=== PATIENT | female | born 1990 | race Two or more races ===

== ENCOUNTER 2019-06-23 12:52 | Emergency (ER) | payer MEDICAID ==
[~2019-06-23] VITALS: Ht 170.2 cm; Wt 72.6 kg
[2019-06-23 12:52] VITALS: BP 122/70
--- NOTE | 2019-06-23 12:52 | NUR ---
ED Nurse Note: patient came to ed for c/o abdominal pain. pt denies nausea/vomiting.
--- NOTE | 2019-06-23 13:15 | NUR ---
ED Nurse Note: URINE SAMPLE SENT TO LAB
[2019-06-23 13:50] LABS: APPEARANCE,URINE CLEAR; BILIRUBIN, URINE NEGATIVE (NEGATIVE); COLOR,URINE BROWN; GLUCOSE, URINE (UA) NEGATIVE (NEGATIVE); KETONES,URINE NEGATIVE (NEGATIVE); LEUKOCYTE ESTERASE ,URINE NEGATIVE (NEGATIVE); NITRITE,URINE NEGATIVE (NEGATIVE); PH,URINE 6.5 (4.5-8.0); PROTEIN,URINE NEGATIVE (NEGATIVE); UROBILINOGEN,URINE 1 MG/DL (0.0-1.0)
--- NOTE | 2019-06-23 14:12 | NUR ---
ED Nurse Note: BLOOD SAMPLE SENT TO LAB
[2019-06-23 14:32] LABS: BASOPHILS % (AUTO) 0.5 % (0.0-2.0); HEMATOCRIT 35.3 % (37.0-47.0); HEMOGLOBIN 12.3 G/DL (12.0-16.0); LYMPHOCYTES % (AUTO) 19.8 % (20.0-45.0); MEAN CORPUSCULAR VOLUME 85 FL (80-99); MONOCYTES % (AUTO) 6.4 % (1.0-10.0); NEUTROPHILS % (AUTO) 71.3 % (45.0-75.0); PLATELET COUNT 222 K/UL (150-450); RED BLOOD COUNT 4.15 M/UL (4.20-5.40); RED CELL DISTRIBUTION WIDTH 11.8 % (11.6-14.8); WHITE BLOOD COUNT 11.1 K/UL (4.8-10.8)
[2019-06-23 14:50] VITALS: BP 130/74
--- NOTE | 2019-06-23 14:50 | NUR ---
ED Nurse Note: pt in room resting, no acute distress is noted. VSS as documented.
--- NOTE | 2019-06-23 14:56 | Emergency Room Report ---
History of Present Illness General Chief Complaint: Abdominal Pain Source: Patient Present Illness HPI 28-year-old female presents to the emergency department complaining of 9 out of 10 severity lower abdominal pain with bloating. Patient reports nausea she states she has had some vomiting couple weeks ago. She is able to pass gas. Patient denies fevers or chills. She denies suspicion of . Patient reports her last menstrual cycle was 8 months ago. Patient states she is not currently sexually active. She denies taking control. She reports prior to 8 months ago she would have her menstrual cycles regularly every month. She denies constipation or diarrhea. She denies dysuria, urinary frequency or urgency. She reports weight gain. No other aggravating or relieving factors at this time. Pt. with psych hx of Bi-polar and depression/anxiety. Pt. reports she self D/C'd her medications several months ago. She was supposed to be taking Latuda and Vitamin B6. Allergies: Coded Allergies: No Known Allergies (Unverified , 06/23/19) UNABLE TO ASSESS (Unverified , 06/24/15) COVID-19 Screening Contact w/high risk pt: No Recent Travel to affected area: No Experienced COVID-19 symptoms?: No Patient History Past Medical History: see triage record, psych hx Past Surgical History: none Pertinent Family History: none Social History: Reports: smoking - current daily smoker Now: Yes Reviewed Nursing Documentation: PMH: Agreed; PSxH: Agreed Nursing Documentation-PMH Past Medical History: No History, Except For History Of Psychiatric Problem: Yes Review of Systems All Other Systems: negative except mentioned in HPI Physical Exam Vital Signs Date Time Temp Pulse Resp B/P (MAP) Pulse Ox O2 Delivery O2 Flow Rate FiO2 06/23/19 12:43 97.3 78 18 116/72 (87) 99 Room Air Sp02 EP Interpretation: reviewed, normal General Appearance: no apparent distress, alert, GCS 15, non-toxic Head: normocephalic, atraumatic Eyes: bilateral eye normal inspection, bilateral eye PERRL ENT: hearing grossly normal, normal voice Neck: full range of motion Respiratory: chest non-tender, lungs clear, normal breath sounds, speaking full sentences Cardiovascular #1: regular rate, rhythm, no edema Gastrointestinal: normal bowel sounds, non tender, no guarding, no hernia, other - gravid palpation at the umbillicus. Rectal: deferred Genitourinary: normal inspection, no CVA tenderness Musculoskeletal: normal range of motion, gait/station normal, non-tender Neurologic: alert, motor strength/tone normal, oriented x3, sensory intact, responsive, speech normal Psychiatric: judgement/insight normal, no suicidal/homicidal ideation, other - pt. has paranoid delusions. Skin: no rash, normal color, normal inspection Lymphatic: no adenopathy Medical Decision Making PA Attestation Dr. Marr Is my supervising Physician whom patient management has been discussed with. Diagnostic Impression: Primary Impression: Left against medical advice Additional Impression: Abdominal pain affecting ER Course 28-year-old female presents to the emergency department complaining of 9 out of 10 severity lower abdominal pain with bloating. Patient reports nausea she states she has had some vomiting couple weeks ago. She is able to pass gas. Patient denies fevers or chills. She denies suspicion of . Patient reports her last menstrual cycle was 8 months ago. Patient states she is not currently sexually active. She denies taking control. She reports prior to 8 months ago she would have her menstrual cycles regularly every month. She denies constipation or diarrhea. She denies dysuria, urinary frequency or urgency. She reports weight gain. No other aggravating or relieving factors at this time. Pt. with psych hx of Bi-polar and depression/anxiety. Pt. reports she self D/C'd her medications several months ago. She was supposed to be taking Latuda and Vitamin B6. Ddx considered but are not limited to Diverticulitis, acute appy, diarrhea,UC, PUD, GE, pancreatitis, gallstone, ovarian torsion, ectopic , PID tubo-ovarian abscess. demise, premature delivery just to name a few. Vital signs: are WNL, pt. is afebrile H&PE are most consistent with suspected Gravid abdomen and possible complication ORDERS: -CBC, CMP, LIPASE: unremarkable -UA: unremarkable -URINE HCG: Positive. -Hcg Quant: 7583 US OB: --Declined by pt. she wants to leave AMA DISPOSITION: - At this time the patient is requesting to leave AGAINST MEDICAL ADVICE. I believe that this patient has the capacity to make decisions on her own. I discussed with the patient the risks of leaving AMA. Some of these risks include delay in diagnosis and treatment, as well as worsening of symptoms, organ damage, and permanent disability or even to both her and her unborn child. After discussing these risks with the patient. She continues to express her wished to leave AGAINST MEDICAL ADVICE. I encouraged the patient to return at any time, and that she will be welcome here in the emergency department to continue medical management. ED INTERVENTIONS: -none required at this time. Labs Test 06/23/19 13:13 06/23/19 14:10 Urine Color Brown Urine Appearance Clear Urine pH 6.5 (4.5-8.0) Urine Specific [place] 1.015 (1.005-1.035) Urine Protein Negative (NEGATIVE) Urine Glucose (UA) Negative (NEGATIVE) Urine Ketones Negative (NEGATIVE) Urine Blood Negative (NEGATIVE) Urine Nitrite Negative (NEGATIVE) Urine Bilirubin Negative (NEGATIVE) Urine Urobilinogen 1 MG/DL (0.0-1.0) Urine Leukocyte Esterase Negative (NEGATIVE) Urine HCG, Qualitative Positive (NEGATIVE) White Blood Count 11.1 K/UL (4.8-10.8) Red Blood Count 4.15 M/UL (4.20-5.40) Hemoglobin 12.3 G/DL (12.0-16.0) Hematocrit 35.3 % (37.0-47.0) Mean Corpuscular Volume 85 FL (80-99) Mean Corpuscular Hemoglobin 29.5 PG (27.0-31.0) Mean Corpuscular Hemoglobin Concent 34.7 G/DL (32.0-36.0) Red Cell Distribution Width 11.8 % (11.6-14.8) Platelet Count 222 K/UL (150-450) Mean Platelet Volume 10.6 FL (6.5-10.1) Neutrophils (%) (Auto) 71.3 % (45.0-75.0) Lymphocytes (%) (Auto) 19.8 % (20.0-45.0) Monocytes (%) (Auto) 6.4 % (1.0-10.0) Eosinophils (%) (Auto) 2.0 % (0.0-3.0) Basophils (%) (Auto) 0.5 % (0.0-2.0) Sodium Level 138 MMOL/L (136-145) Potassium Level 3.9 MMOL/L (3.5-5.1) Chloride Level 105 MMOL/L (98-107) Carbon Dioxide Level 23 MMOL/L (21-32) Anion Gap 10 mmol/L (5-15) Blood Urea Nitrogen 8 mg/dL (7-18) Creatinine 0.6 MG/DL (0.55-1.30) Estimat Glomerular Filtration Rate > 60 mL/min (>60) Glucose Level 97 MG/DL (74-106) Calcium Level 9.1 MG/DL (8.5-10.1) Total Bilirubin 0.1 MG/DL (0.2-1.0) Aspartate Amino Transf (AST/SGOT) 13 U/L (15-37) Alanine Aminotransferase (ALT/SGPT) 21 U/L (12-78) Alkaline Phosphatase 117 U/L (46-116) Total Protein 5.9 G/DL (6.4-8.2) Albumin 2.7 G/DL (3.4-5.0) Globulin 3.2 g/dL Albumin/Globulin Ratio 0.8 (1.0-2.7) Lipase 103 U/L (73-393) Human Chorionic Gonadotropin, Quant 7583 mIU/mL (1-6) CT/MRI/US Diagnostic Results CT/MRI/US Diagnostic Results : Imaging Test Ordered: OB US Impression " " Per official radiology report- Please see report for specific details. Last Vital Signs Date Time Temp Pulse Resp B/P (MAP) Pulse Ox O2 Delivery O2 Flow Rate FiO2 06/23/19 12:52 80 18 Room Air 06/23/19 12:52 97.3 122/70 99 Disposition: AGAINST MEDICAL ADVICE Condition: Unknown Referrals: [facility] Patient Instructions: Abdominal Pain During Additional Instructions: You are leaving AMA, before results of your diagnostic lab work are available. This can cause delayed diagnosis as well as treatment, and ultimately leading up to worsening of symptoms, damage to organs, permanent disability or even . You are encouraged to return to the ER at any time if you want to continue your evaluation. Attached is also a list of mental health resources as well as women's clinics. aGby Fowler Jun 23, 2019 14:56
[2019-06-23 15:02] LABS: ANION GAP 10 mmol/L (5-15); BLOOD UREA NITROGEN 8 mg/dL (7-18); CALCIUM 9.1 MG/DL (8.5-10.1); CARBON DIOXIDE 23 MMOL/L (21-32); CHLORIDE 105 MMOL/L (98-107); CREATININE 0.6 MG/DL (0.55-1.30); POTASSIUM 3.9 MMOL/L (3.5-5.1); SODIUM 138 MMOL/L (136-145)
[2019-06-23 15:06] LABS: ALANINE AMINOTRANSFERASE 21 U/L (12-78); ALBUMIN 2.7 G/DL (3.4-5.0); ALBUMIN/GLOBULIN RATIO 0.8 (1.0-2.7); ALKALINE PHOSPHATASE 117 U/L (46-116); ASPARTATE AMINO TRANSFERASE 13 U/L (15-37); BILIRUBIN,TOTAL 0.1 MG/DL (0.2-1.0)
[2019-06-23 16:30] VITALS: BP 122/70
--- NOTE | 2019-06-23 16:30 | NUR ---
AMA: pt wanted to leave, pt signed AMA form. SEE AMA FORM. risks and benefits were explained by ERMD.
== END 2019-06-23 16:30 | disposition left against medical advice (07) ==
LOC: EDBD 12:52 → EMR 16:12
DX: O26.90 Pregnancy related conditions, unspecified, unspecified trimester (principal); Z3A.00 Weeks of gestation of pregnancy not specified; R10.9 Unspecified abdominal pain; O99.330 Smoking (tobacco) complicating pregnancy, unspecified trimester; F17.200 Nicotine dependence, unspecified, uncomplicated
CPT/HCPCS: 36415; 80053; 81003; 81025; 83690; 84702; 85025; Z7502; 99284

== ENCOUNTER 2019-10-23 00:15 | Emergency (ER) | payer MEDICAID ==
[~2019-10-23] VITALS: Ht 175.3 cm; Wt 81.6 kg
[2019-10-23 00:20] VITALS: BP 126/89
--- NOTE | 2019-10-23 00:20 | NUR ---
ED Nurse Note: Pt has no complaints of pain or any other medical complaint at this time.
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
--- NOTE | 2019-10-23 00:40 | NUR ---
BELONGINGS IN LOCKER #2.
[2019-10-23 01:01] LABS: BASOPHILS % (AUTO) 1.1 % (0.0-2.0); EOSINOPHILS % (AUTO) 3.5 % (0.0-3.0); HEMATOCRIT 38.9 % (37.0-47.0); HEMOGLOBIN 12.9 G/DL (12.0-16.0); LYMPHOCYTES % (AUTO) 35.5 % (20.0-45.0); MEAN CORPUSCULAR VOLUME 87 FL (80-99); MONOCYTES % (AUTO) 5.2 % (1.0-10.0); NEUTROPHILS % (AUTO) 54.7 % (45.0-75.0); PLATELET COUNT 210 K/UL (150-450); RED BLOOD COUNT 4.45 M/UL (4.20-5.40); RED CELL DISTRIBUTION WIDTH 12.5 % (11.6-14.8); WHITE BLOOD COUNT 9.3 K/UL (4.8-10.8)
[2019-10-23 01:14] LABS: ANION GAP 13 mmol/L (5-15); BLOOD UREA NITROGEN 15 mg/dL (7-18); CALCIUM 8.5 MG/DL (8.5-10.1); CARBON DIOXIDE 23 MMOL/L (21-32); CHLORIDE 105 MMOL/L (98-107); CREATININE 1.1 MG/DL (0.55-1.30); POTASSIUM 3.6 MMOL/L (3.5-5.1); SODIUM 141 MMOL/L (136-145)
[2019-10-23 01:24] LABS: APPEARANCE,URINE CLEAR; BILIRUBIN, URINE NEGATIVE (NEGATIVE); COLOR,URINE PALE YELLOW; GLUCOSE, URINE (UA) NEGATIVE (NEGATIVE); KETONES,URINE NEGATIVE (NEGATIVE); LEUKOCYTE ESTERASE ,URINE 2+ (NEGATIVE); NITRITE,URINE NEGATIVE (NEGATIVE); PH,URINE 6.5 (4.5-8.0); PROTEIN,URINE NEGATIVE (NEGATIVE); UROBILINOGEN,URINE NORMAL MG/DL (0.0-1.0)
[2019-10-23 01:25] LABS: ALANINE AMINOTRANSFERASE 33 U/L (12-78); ALBUMIN 3.4 G/DL (3.4-5.0); ALBUMIN/GLOBULIN RATIO 0.9 (1.0-2.7); ALKALINE PHOSPHATASE 155 U/L (46-116); ASPARTATE AMINO TRANSFERASE 19 U/L (15-37); BILIRUBIN,TOTAL < 0.1 MG/DL (0.2-1.0)
--- NOTE | 2019-10-23 01:40 | NUR ---
ED Nurse Note: Pt provided with socks and warm blankets for comfort. Pt is cooperative and calm at this time. NAD. RN bedside, will continue to monitor her.
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
[2019-10-23 03:30] VITALS: BP 130/78
--- NOTE | 2019-10-23 03:30 | NUR ---
ED Nurse Note: Pt is in bed with safety measures in place. Pt has eyes closed and appears to be sleeping. NAD and pt breathing is normal and unlabored. RN bedside as sitter. Will cont. to monitor.
--- NOTE | 2019-10-23 04:45 | NUR ---
ED Nurse Note: Pt ambulated to restroom with steady gait. Pt is requesting to go home. RN reexplained situation to pt. Pt understood and is being cooperative, displays no signs of aggressive behavior at this time.
[2019-10-23 05:00] VITALS: BP 127/70
--- NOTE | 2019-10-23 05:00 | NUR ---
ED Nurse Note: Pt provided with oral hydration and sandwhich. Pt tolerted well. NAD. Pt is breathing normal and unlabored. RN bedside as sitter; safety measures in place. Will cont. to monitor pt. VSS.
--- NOTE | 2019-10-23 07:00 | NUR ---
ED Nurse Note: Pt provided with breakfast tray. Pt is in bed with no acute distress. Sitter is bedside.
--- NOTE | 2019-10-23 07:05 | NUR ---
ED Nurse Note: pt. is still sleeping with no s/s of acute distress noted. sitter at the bedside. patient safety environmental checklist done
--- NOTE | 2019-10-23 07:05 | NUR ---
HAND-OFF: Report given to ZOILA Peace.
[2019-10-23 07:34] VITALS: BP 118/75
--- NOTE | 2019-10-23 11:13 | NUR ---
ED Nurse Note: Pt seen awake, alert and oriented. No SOB, on room air. Safety and comfort provided. Sitter at bedside.
[2019-10-23] MEDS ORDERED: LORazepam 0.5mg tab ORAL ONE (11:45)
--- NOTE | 2019-10-23 11:50 | NUR ---
ED Nurse Note: Lunch tray provided.
[2019-10-23] MEDS ORDERED: ZyPREXA Zydis 10mg tab ORAL ONE (12:30)
[2019-10-23] MEDS ORDERED: LORazepam Inj 2mg/ml 1ml ONE (13:10)
[2019-10-23] MEDS ORDERED: DiphenhydrAMINE 50mg/ml Inj ONE (13:10)
[2019-10-23] MEDS ORDERED: Haloperidol 5mg/ml Inj IM ONE (13:15)
[2019-10-23] MEDS ORDERED: DiphenhydrAMINE 50mg/ml Inj IV ONE (13:15)
[2019-10-23] MEDS ORDERED: LORazepam Inj 2mg/ml 1ml IV ONE (13:15)
--- NOTE | 2019-10-23 13:15 | NUR ---
ED Nurse Note: Pt gets agitated, combative, pacing back and forth. ERMD notified. Benadryl, Haldol and Ativan given as ordered.
--- NOTE | 2019-10-23 13:50 | NUR ---
ED Nurse Note: Covid swab rapid collected and sent to lab.
--- NOTE | 2019-10-23 14:38 | NUR ---
ED Nurse Note: Dr. Almaraz at bedside. Pt able to answer the questions properly, denies SI/ HI. AAOX4. Dr. Almaraz lift the 5150 hold and okayed to dc the patient.
--- NOTE | 2019-10-23 19:04 | NUR ---
HAND-OFF: Report given to Gaby CUMMINGS.
--- NOTE | 2019-10-23 19:20 | NUR ---
ED Nurse Note: pATIETN IS SLEEPING COMFORTABLY WITH NO S/S OF ACUTE DISTRESS. DISCHARGE PENDING ERMD EVALUATION POST HOLD CLEARANCE BY PSYCH .
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
--- NOTE | 2019-10-23 20:30 | NUR ---
ED Nurse Note: PATIENT EASILY AOURSABLE, EXPRESSED CALLING DAD REGARDING DISCHARGE, WILL FOLLOW UP WITH ER MD.
--- NOTE | 2019-10-23 22:00 | NUR ---
ED Nurse Note: PATIENT WENT BACK TO SLEP, NO S/S OF ACUTE DISTRESS, WILL CONTINUE TO MONITOR.
--- NOTE | 2019-10-23 23:00 | NUR ---
ED Nurse Note: PER DR. TSE, PATIENT IS TO NOT BE DISCHARGED WITHOUT RECEIVING LONG ACTING HALDOL AND WITHOUT FATHER'S NOTICE
[2019-10-23] MEDS ORDERED: Haloperidol Decanoate (Long Acting) 50mg Inj IM ONE (23:15)
[2019-10-23] MEDS ORDERED: Benztropine 1mg tab ORAL ONE (23:15)
[2019-10-23] MEDS ORDERED: BENZTROPINE ME0.5 MG ORAL (23:18)
--- NOTE | 2019-10-23 23:35 | NUR ---
ED Nurse Note: PATIENT RENDERED AVAILABLE ORDER BY ERMD PRIOR TO IMPENDING DISCHARGE. PHARMACY CONTACTED REGARDING BLOCKED MEDICATION VIA PIPELINE.
--- NOTE | 2019-10-24 00:05 | NUR ---
ED Nurse Note: PIPELINE UNABLE TO CLEAR MEDICATION, YORDY ORDERED MEDICATION TO BE ADMINISTERED IN THE AM WHEN PHARMACY ARRIVES FOR AUXILIARY EQUIPMENT TENDER MAINTENANCE PRIOR TO DISCHARGE. ORAL MEDICAL ADMINISTERED AT THIS TIME.
--- NOTE | 2019-10-24 01:15 | NUR ---
ED Nurse Note: PATIETN SLEEPING SOUNDLY, WILL CONTINUE TO MONITOR.
--- NOTE | 2019-10-24 02:30 | NUR ---
ED Nurse Note: PATIENT'S DAD IS EXPECTING TO RECEIVE A CALL PRIOR TO DISCHARGE SO THAT HE WILL BE AT HOME TO RECEIVE PATIENT HE HAS WORK AT 8:30 AM. PATIENT TO BE DISPATCHED VIA [facility].
[2019-10-24 03:30] VITALS: BP 116/81
--- NOTE | 2019-10-24 03:30 | NUR ---
ED Nurse Note: PATIENT STILL SLEEPING WITH NO S/S OF ACUTE DISTRESS, VITALS STABLE AND DOCUMENTED.
--- NOTE | 2019-10-24 05:15 | NUR ---
ED Nurse Note: PATIENT SLEEPING SOUNDLY, NO S/S OF ACUTE DISTRESS PRIOR TO REPORT HAND-OFF. VITALS TO BE UPDATED SOON.
--- NOTE | 2019-10-24 06:02 | NUR ---
ED Nurse Note: Received call from pharmacy that medication is now ready for fruit picker. House sup contacted for transport to home.
--- NOTE | 2019-10-24 06:13 | NUR ---
ED Nurse Note: Patient tolerated medication administration well.
--- NOTE | 2019-10-24 07:07 | NUR ---
ED Nurse Note: Pt asleep in bed, informed we are waiting pt transportation home.
--- NOTE | 2019-10-24 07:23 | NUR ---
ED Nurse Note: Pt is awake, VSS, pt ambulated to restroom with steady gait. pt placed in waiting room per instruction to wait for ride.
[2019-10-24 07:24] VITALS: BP 124/79
--- NOTE | 2019-10-24 07:25 | NUR ---
ED Nurse Note: informed pt that [employer] arrived.
--- NOTE | 2019-10-24 07:25 | NUR ---
ED Nurse Note: Escorted pt to [employer] vehicle license plate #: [id number], [place]
== END 2019-10-24 07:25 ==
LOC: EDBD 00:15 → EMR 00:45
DX: F15.10 Other stimulant abuse, uncomplicated (principal); R45.850 Homicidal ideations; F29 Unspecified psychosis not due to a substance or known physiological condition; R00.1 Bradycardia, unspecified
CPT/HCPCS: 36415; 80053; 80307; 81003; 81025; 84443; 84703; 85025; 87086; 93005; 96372; 96374; 96375; G0480; G0481; J1200; J1630; J1631; U0002; Z7502; 99285